=== PATIENT | male | born 1995 | race Caucasian/White ===

== ENCOUNTER 2017-04-28 04:15 | Emergency (ER) | payer OTHER ==
[2017-04-28 04:18] VITALS: BP 128/79; PULSE 92; RESP 16; TEMP 98.3; O2SAT 97
--- NOTE | 2017-04-28 04:53 | PD ---
HPI Chief Complaint: Injury Time Seen by Provider: 04:50 Travel History International Travel<30 days: No Contact w/Intl Traveler<30days: No Traveled to known affect area: No History of Present Illness HPI Patient comes in for evaluation injury to his right lower extremity that occurred shortly prior to arrival. Patient states he was playing around a revolving door when he had his right leg stuck. Patient is uncertain of his last tetanus shot. Patient denies any pain initially however not having some throbbing pain. Denies any radiation of pain. Pain is worse with walking. Denies any numbness or tingling. [facility] Past Medical History Medical History: Denies Significant Hx Diminished Hearing: No Tetanus Vaccination: Unknown Influenza Vaccination: No Past Surgical History Surgical History: No Previous Surgery Social History Alcohol Use: Yes (social) Tobacco Use: No Substance Use: No Allergies-Medications (Allergen,Severity, Reaction): Coded Allergies: No Known Allergies (Unverified , 04/28/17) Reported Meds & Prescriptions Reported Meds & Active Scripts Active No Active Prescriptions or Reported Medications Review of Systems Except as stated in HPI: all other systems reviewed are Neg Physical Exam Narrative GENERAL: Well-developed, well nourished, in no acute distress, and non-ill appearing. SKIN: Small puncture wound noted right lower extremity medial calf. No obvious foreign body noted. HEAD: Atraumatic. Normocephalic. EYES: Pupils equal and round. EOMI. No scleral icterus. No injection or drainage. ENT: No nasal bleeding or discharge. Mucous membranes pink and moist. NECK: Trachea midline. Supple. No nuclear rigidity. CARDIOVASCULAR: Dorsal pulses 2+, intact, and equal bilaterally. Capillary refill less than 2 seconds. RESPIRATORY: No accessory muscle use. No respiratory distress. MUSCULOSKELETAL: No obvious deformities. No clubbing. No cyanosis. No edema. Full range of motion. Calf is soft. There is contusion under noted on her anterior perry midshaft. Mildly tender. There is no obvious deformity. Neurovascular intact distally. Full range of motion distally. Negative Constantin's sign. Pulses equal BL distal to injury. Capillary refill less than 2 seconds distal to injury and equal BL. Sensation equal BL 1st web space. FROM of toes distal to injury and equal BL. NV intact distal to injury and equal BL. Dorsal pulses equal BL. NEUROLOGICAL: Awake and alert. No obvious cranial nerve deficits. Motor grossly within normal limits. Normal speech. PSYCHIATRIC: Appropriate mood and affect; insight and judgment normal. Data Data Last Documented VS Vital Signs Date Time Temp Pulse Resp B/P Pulse Ox O2 Delivery O2 Flow Rate FiO2 04/28/17 04:18 98.3 92 16 128/79 97 Room Air Orders Tetanus/Diphtheria Tox Adult (Tetanus/Di (04/28/17 05:00) Tibia/Fibula (Ap/Lat) (04/28/17 ) Ice/Cold Pack (04/28/17 04:51) Ibuprofen (Motrin) (04/28/17 05:45) MDM Medical Decision Making Medical Screen Exam Complete: Yes Emergency Medical Condition: Yes Interpretation(s) X-ray read by the radiologist shows: No acute disease. Differential Diagnosis Fracture, retained foreign body, contusion, puncture wound, other Narrative Course The patient suffered a puncture wound to the extremity. There was no evidence to suggest foreign bodies. Visual, tactile and radiographic exams were unremarkable without evidence of foreign body at this time. There was no evidence of neurovascular injury. The patient had a normal distal vascular exam , and had full normal motor and sensory exams. There was also no evidence or tendon injury, with normal distal full range of motions, flexion, extension, abduction, adduction and opponens. There was no evidence of local joint space involvement at this time. The patient was irrigated with copious sterile normal saline. The patient was given signs and symptom warnings for infection, such as increasing pain, redness, swelling, associated heat, pus or fever. The patient was warned of possible unseen foreign body and instructed to return immediately if signs or symptoms develop. The patient was given instructions for timely follow up. The patient agreed with plan of care. Patient in no obvious distress upon re-evaluation. All pertinent Radiology result(s) discussed with patient. Any questions/concerns in reference to patient diagnosis/condition discussed and clarified prior to patient's discharge. Reinforced sheer importance of close follow up with patient's primary physician or primary care clinic. Instructed patient to return to ED immediately, if symptoms return/worsen. Pt showed understanding of above instructions. Further instructions and recommendations were detailed in discharge paperwork. Pt ambulated without difficulty out of ED at discharge. Diagnosis Primary Impression: Puncture wound Patient Instructions: General Instructions, Puncture Wound (ED) Additional Instructions: Follow-up with your primary care physician in 3-5 days for reevaluation. Use [id number] Tylenol and/or ibuprofen as needed for pain. Follow instructions on the packaging. Apply ice affected area 20 minutes return as needed for pain. Keep wound dry and clean as possible using soap and water. Do not soak or submerge wound. Return to the emergency department if symptoms get worse. Scripts No Active Prescriptions or Reported Meds Disposition: 01 DISCHARGE HOME Condition: Stable Abundio Drake Apr 28, 2017 04:53
[2017-04-28] MEDS ORDERED: TETANUS/DIPHTHERIA TOXOID ADULT 0.5 ML VIAL IM ONE (05:00)
--- NOTE | 2017-04-28 05:38 | RADRPT ---
EXAM DATE/TIME: 04/28/2017 04:51 [facility] COMPARISON: No previous studies available for comparison. INDICATIONS : Right leg pain from being caught in rotating door. MEDICAL HISTORY : SURGICAL HISTORY : ORIF of distal tibia/fibula. ENCOUNTER: Initial ACUITY: 1 day PAIN SCORE: 5/10 LOCATION: Right Lower leg FINDINGS: Two view examination of the right tibia demonstrates no evidence of fracture or dislocation. Bony mi neralization is normal. The soft tissue structures are intact. Medial plate and screw fixation of th e distal tibia identified. CONCLUSION: No acute disease. Wei Montero MD on April 28, 2017 at 5:36 Board Certified Radiologist. This report was verified electronically.
[2017-04-28] MEDS ORDERED: IBUPROFEN 800 MG TAB PO ONE (05:45)
== END 2017-04-28 06:10 | disposition home or self-care (01) ==
LOC: NEPD 04:15
DX: S81.831A Puncture wound without foreign body, right lower leg, initial encounter (principal); W22.8XXA Striking against or struck by other objects, initial encounter; Z23 Encounter for immunization
CPT/HCPCS: 73590; 90471; 90714